=== PATIENT | male | born 1970 | race Caucasian/White ===

== ENCOUNTER 2023-03-25 06:41 | Day surgery (SDC) | payer OTHER, SELFPAY ==
[2023-03-19 14:08] VITALS: BMI 26.3
[2023-03-25] VITALS (8 sets, daily range): BP systolic 127–179; BP diastolic 81–107; PULSE 53–90; RESP 12–17; TEMP 36.1–36.4; O2SAT 92–97; BMI 25.5
[2023-03-25] MEDS: LACTATED RINGERS 1,000 ML 42 ML IV (07:09)
--- NOTE | 2023-03-25 07:43 | PM.HP.1 ---
History of Present Illness History of Present Illness Date Patient Seen: 03/25/23 Time Patient Seen: 07:43 Chief complaint: Lap R Inguinal Hernia Repair w/mesh Narrative: Stephan is a 52-year-old man with a symptomatic right inguinal hernia. See the office note from January for details. No changes since January. [facility] Medical History Abnormal levels of other serum enzymes Dyspnea Headache Hypertension Vitamin D deficiency Social History household members: significant other Smoking Status: Current some day smoker alcohol intake: current Meds Home Medications and Allergies Home Medications Medication Instructions Recorded Confirmed Type lisinopril 5 mg tablet 5 mg PO DAILY 01/29/23 03/25/23 History Allergies Allergy/AdvReac Type Severity Reaction Status Date / Time No Known Drug Allergies Allergy Verified 03/25/23 06:48 Exam Vital Signs (past 8 hours): - 03/25/23 06:56 Temperature 97.4 F L Pulse Rate 67 Respiratory Rate 17 Blood Pressure 142/85 H Pulse Oximetry 97 Oxygen Delivery Method Room Air Oxygen Delivery Method Room Air Narrative Exam Narrative: Moderate-sized right inguinal hernia Const General: healthy appearing Assessment & Plan Assessment and plan (1) Right inguinal hernia: Status: Acute Plan We reviewed the risks and benefits of a laparoscopic right inguinal hernia repair with mesh and he would like to proceed.
[2023-03-25] MEDS: CEFAZOLIN 2 GM/100 ML PREMIX 100 ML IV (07:57)
--- NOTE | 2023-03-25 08:09 | SUR.OPER ---
Supine on padded OR bed, head on pillow, arms padded and tucked at sides, legs uncrossed, safety belt at thigh, tape over blanket over lower legs . [place] positioner pad under torso.
[2023-03-25] MEDS: BUPIVACAINE 0.5% (PF) 10 ML VIAL 30 ML INJ (08:20)
--- NOTE | 2023-03-25 09:29 | PM.OP.1 ---
Operative Date/Time/Diagnoses Date of procedure: 03/25/23 Time of procedure: 09:29 Pre-op diagnosis: Right inguinal hernia Post-op diagnosis: same Procedure & Clinicians Procedure: Laparoscopic right inguinal hernia repair with mesh Same procedure as scheduled: Yes Surgeon: Ovidio Godoy [employer] Manager: Blayne Castillo Anesthesia Type: General Operative Notes Procedure in detail: The patient was given preoperative antibiotics. The patient was brought to the operating room, placed on the table in the supine position with the arms tucked and general anesthesia was induced. The abdomen was prepped and draped in the usual fashion. A time-out was performed. A 1 cm transverse supraumbilical incision was created and dissection was carried down to the fascia. The fascia was scored transversely with cautery. The inferior leaf was grasped with a Leela clamp and a Peon clamp was used to escobedo the peritoneum. The Tolu port was placed and the abdomen was insufflated to 15 mmHg. The camera was inserted, there was no evidence of any injury from the entry. There was a direct right inguinal hernia. 5 mm ports were placed under direct vision in the mid left and mid right abdomen. The patient was positioned in steep Trendelenburg. We created right peritoneal flap. The peritoneum was dissected off the right cord structures and medially to the pubic symphysis. Fatty tissue was reduced from the direct defect as well as a cord lipoma from indirect space. A large right Bard mesh was brought in and placed over the defect with the medial edge against Kolby's ligament and covered both the direct defect as well as the indirect space. We then closed the peritoneal flap with a running 3-0 barbed suture. There was a 2 cm rent in the peritoneal flap which was closed with an additional 3-0 barbed suture. We took one last look around the abdomen and saw no other abnormalities. The suture was removed and accounted for. The 5 mm ports were removed under direct vision. The abdomen was desufflated. The Tolu port was removed. Additional local was injected into the fascia and the infraumbilical fascial incision was closed with 2 interrupted 0 Vicryl sutures. The skin incisions were closed with 4 Monocryl, Steri-Strips and Band-Aids. EBL: 10 mL Post-operative Condition: stable Disposition: PACU
[2023-03-25] MEDS: OXYCODONE/ACETAMINOPHEN 5/325 TABLET 1 TAB PO (10:13)
== END 2023-03-25 10:31 | disposition home or self-care (01) ==
PROVIDERS: PCP Internal Medicine Cardiovascular Disease; Referring Provider Surgery; Visit Provider Surgery
PROC: 0YQ54ZZ Repair Right Inguinal Region, Percutaneous Endoscopic Approach (ICD-10-PCS; CPT 49650; principal; 2023-03-25 07:45)
DX: K40.90 Unilateral inguinal hernia, without obstruction or gangrene, not specified as recurrent (principal)
CPT/HCPCS: 49650; J0690; J1100; J2250; J2405; J2704; J3010